=== PATIENT | female | born 1995 | race Caucasian/White ===

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

== ENCOUNTER 2017-03-26 12:08 | Emergency (ER) | payer OTHER ==
[2017-03-26 13:59] VITALS: BP 115/57
--- NOTE | 2017-03-26 14:03 | UC ---
Respiratory Complaint HPI - HPI Summary HPI Summary: 21 y/o female presents to the urgent care c/o productive cough, wheezing mild SOB for the past 3 days. Pt reports she Hx of asthma and recurrent bronchitis. Pt states went hiking last weekend and the cold and exercise trigger her asthma , Then phlegm has become green w/ chills at home. Pt has been using her albuterol inhaler. Pt denies chest pain, abdominal pain, MARIANO, N/V/D. Pt is UTD w / all vaccines for her age. - History of Current Complaint Chief Complaint: UCGeneralIllness Stated Complaint: COUGH Time Seen by Provider: 03/26/17 14:01 Hx Obtained From: Patient Hx Last Menstrual Period: IUD ?: No Onset/Duration: Gradual Onset, Lasting Days - 3 days, Still Present, Worse Since - yesterday Timing: Intermittent Episodes - wheezing Severity Initially: Mild Severity Currently: Moderate Pain Intensity: 2 - Headache Pain Scale Used: 0-10 Numeric Character: Cough: Productive, Sputum Description: - green Aggravating Factors: Recumbent Position Alleviating Factors: Bronchodilator Associated Signs And Symptoms: Positive: Chills, Wheezing, URI, Nasal Congestion. Negative: Fever - Risk Factors Pulmonary Embolism Risk Factors: Negative Cardiac Risk Factors: Negative Pseudomonas Risk Factors: Negative Tuberculosis Risk Factors: Negative - Allergies/Home Medications Allergies/Adverse Reactions: Allergies Allergy/AdvReac Type Severity Reaction Status Date / Time amoxicillin Allergy Hives Verified 03/26/17 13:53 Home Medications: Home Medications Albuterol HFA INHALER* [Ventolin HFA Inhaler*] 2 puff INH Q4H PRN 03/26/17 [ History Confirmed 03/26/17] PMH/Surg Hx/FS Hx/Imm Hx Previously Healthy: Yes Respiratory History: Asthma, Bronchitis - recurrent - Surgical History Surgical History: Yes Surgery Procedure, Year, and Place: RIGHT HIP SX - Family History Known Family History: Negative: Diabetes Family History: Leukemia - Social History Occupation: Student Lives: With Family Alcohol Use: Rare Substance Use Type: None Smoking Status (MU): Never Smoked Tobacco Have You Smoked in the Last Year: No - Immunization History Vaccination Up to Date: Yes Review of Systems Constitutional: Chills Skin: Negative Eyes: Negative ENT: Nasal Discharge Respiratory: Shortness Of Breath, Cough, Other - wheezing Cardiovascular: Negative Gastrointestinal: Negative Genitourinary: Negative Motor: Negative Neurovascular: Negative Musculoskeletal: Negative Neurological: Headache Psychological: Negative Is Patient Immunocompromised?: No All Other Systems Reviewed And Are Negative: Yes Physical Exam Triage Information Reviewed: Yes Vital Signs: Initial Vital Signs Temp 97.8 F 03/26/17 13:54 Pulse 70 03/26/17 13:54 Resp 24 03/26/17 13:54 BP 115/57 03/26/17 13:54 Pulse Ox 100 03/26/17 13:54 - Additional Comments VITAL SIGNS: Reviewed. GENERAL: Patient is a well developed and nourished female adolescent with no apparent respiratory distress. HEAD AND FACE: Normocephalic and atraumatic. EYES: PERRLA, EOMI x 2, No injected conjunctiva. EARS: Hearing grossly intact. Ear canals and tympanic membranes WNL MOUTH: Dry oral mucosa. NECK: Supple, trachea is midline, no adenopathy, no JVD, no carotid bruit. CHEST: Symmetric, No intercostal or abdominal retraction, LUNGS: Diffuse bilateral posterior lungs w/ wheezing and decreased breath sounds.No crackles. CVS: RRR,, S1 and S2 present, no murmurs or gallops appreciated. ABDOMEN: Soft, non-tender. No signs of distention. Positive BS. No rebound, no guarding, and no masses palpated. EXTREMITIES: FROM in all major joints, no edema, no cyanosis or clubbing. NEURO: Alert and oriented x 3. No acute neurological deficits. Speech is normal and follows commands. SKIN: Dry and warm UC Diagnostic Evaluation - Laboratory O2 Sat by Pulse Oximetry: 100 Respiratory Course/Dx - Course Course Of Treatment: 21 y/o female presents to the urgent care c/o productive cough, wheezing mild SOB for the past 3 days. Pt reports she has Hx of asthma and recurrent bronchitis. Pt states went hiking last weekend and the cold and exercise trigger her asthma, Then phlegm has become green w/ chills at home. Pt has been using her albuterol inhaler. Pt denies chest pain, abdominal pain, MARIANO, N/V/D. Pt is UTD w/ all vaccines for her age.Hx obtained Pt w/ Asthma exacerbation: due to Acute Bronchitis. O2Sat: 100%. Prednisone and albuterol Tx given to patient. Patient tolerated well treatment and lungs improved, mild wheezing only in posterior RT lung, O2 sat 100%. Patient left the clinic ambulating and feeling better. Patient prescribed Prednisone PO, Z-gris PO as directed below. The patient was recommended to increase fluid intake. Take medications as recommended and patient advised to continue w/ albuterol treatments TID. Patient recommended to return to the clinic or go to the nearest ER if symptoms do not improve or worsen. Otherwise f/u w/ her PCP for further management on her Asthma. Patient understood and agreew/ plan of care - Differential Dx/Diagnosis Differential Diagnosis/HQI/PQRI: Asthma, Bronchitis, Influenza, Laryngitis, Lower Resp Infection, Sinusitis Provider Diagnoses: 1- Acute asthma exacerbation. 2-Bronchitis Discharge - Discharge Plan Condition: Stable Disposition: HOME Prescriptions: Azithromyxin GRIS (NF) [Z-Gris (Zithromax) 250 mg tabs #6] 2 tab PO .TODAY, THEN 1 DAILY #6 tab predniSONE TAB* [Deltasone TAB*] 20 mg PO DAILY #8 tab Patient Education Materials: Asthma (ED), Acute Bronchitis (ED) Forms: *School Release Referrals: [facility] [Outside] - 3 Days Additional Instructions: 1-Please take full course of antibiotic to avoid resistance. 2- use the albuterol inhaler to alleviate cough. Increase fluid intake, rest and eat well. 3- If symptoms do not improve or worsen or your develop SOB with fever and severe wheezing please go immediately to the ER further evaluation and treatment. 4- F/u with your PCP in 2-3 days for further management on your Asthma
[2017-03-26] MEDS ORDERED: Albuterol 2.5 MG/3 ML NEB.SOL* (0.083%) INH ONE (14:08)
[2017-03-26] MEDS ORDERED: predniSONE TAB* 20 MG PO ONE (14:08)
== END 2017-03-26 14:58 | disposition home or self-care (01) ==
LOC: UCCORT 12:08
DX: J45.901 Unspecified asthma with (acute) exacerbation (principal)
CPT/HCPCS: 99212; G0463; J7512

== ENCOUNTER 2017-05-20 13:38 | Emergency (ER) | payer OTHER ==
--- NOTE | 2017-05-20 14:12 | UC ---
Hand/Wrist HPI - HPI Summary HPI Summary: pt hit in R hand while up to bat in a [email or web address] soft[place] game. pitch was about 60 mph. c/o pain/swelling. 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 - History Of Current Complaint Stated Complaint: RT HAND INJURY Time Seen by Provider: 05/20/17 13:58 Hx Obtained From: Patient Hx Last Menstrual Period: IUD Onset/Duration: Sudden Onset Severity Initially: Moderate Severity Currently: Moderate Character Of Pain: Aching Aggravating Factor(s): Movement Alleviating Factor(s): Rest - Allergies/Home Medications Allergies/Adverse Reactions: Allergies Allergy/AdvReac Type Severity Reaction Status Date / Time amoxicillin Allergy Hives Verified 03/26/17 13:53 PMH/Surg Hx/FS Hx/Imm Hx Previously Healthy: Yes - Surgical History Surgical History: Yes Surgery Procedure, Year, and Place: RIGHT HIP SX - Family History Known Family History: Positive: Other - half brother with leukemia Negative: Diabetes Family History: Leukemia - Social History Occupation: Student Lives: Dormitory/Roommates Alcohol Use: Rare Substance Use Type: None Smoking Status (MU): Never Smoked Tobacco Have You Smoked in the Last Year: No - Immunization History Vaccination Up to Date: Yes Review of Systems Constitutional: Negative Skin: Negative Eyes: Negative ENT: Negative Respiratory: Negative Cardiovascular: Negative Gastrointestinal: Negative Genitourinary: Negative Motor: Negative Neurovascular: Negative Musculoskeletal: Other: - pain/swelling R hand Neurological: Negative Psychological: Negative Is Patient Immunocompromised?: No All Other Systems Reviewed And Are Negative: Yes Physical Exam Triage Information Reviewed: Yes Appearance: Well-Appearing Vital Signs Reviewed: Yes Eyes: Positive: Conjunctiva Clear ENT: Positive: Normal ENT inspection Neck: Positive: Supple, Nontender, No Lymphadenopathy Respiratory: Positive: Lungs clear, Normal breath sounds Cardiovascular: Positive: RRR, No Murmur Abdomen Description: Positive: Nontender, No Organomegaly, Soft Bowel Sounds: Positive: Present Musculoskeletal: Positive: Other: - RUE: Dorsal/radial hand with swelling and tenderness. s/v/m is intact. Neurological: Positive: Alert Psychological: Positive: Age Appropriate Behavior Skin Exam: Normal Diagnostics - Radiology No standard instances Xray Interpretation: Positive (See Comments) - sts, no fx Radiology Interpretation Completed By: Radiologist Hand/Wrist Course/Dx - Course Course Of Treatment: NO FX OR INFECTION - Differential Dx/Diagnosis Provider Diagnoses: Contusion R hand Discharge - Sign-Out/Discharge Documenting (check all that apply): Discharge - Discharge Plan Condition: Stable Disposition: HOME Patient Education Materials: Contusion in Adults (ED) Forms: *School Release Additional Instructions: FOLLOW UP [facility] IN 5 DAYS FOR A RECHECK. - Billing Disposition and Condition Condition: STABLE Disposition: HOME
[2017-05-20 14:13] VITALS: BP 128/79
--- NOTE | 2017-05-20 14:30 | RAD ---
Indication: RIGHT hand pain and swelling following injury. Attention fourth and fifth metacarpals. Struck by pitch yesterday. Comparison: No relevant prior exams available on the [facility] PACS for comparison. Technique: AP and lateral views RIGHT hand. REPORT AND IMPRESSION: Negative for fracture or malalignment. Reserved joint spaces. Soft tissue swelling over the dorsum of the hand at the level of the metacarpals and metacarpal phalangeal joints.
== END 2017-05-20 14:58 | disposition home or self-care (01) ==
LOC: UCCORT 13:38
DX: S60.221A Contusion of right hand, initial encounter (principal); W21.09XA Struck by other hit or thrown ball, initial encounter; Y93.64 Activity, baseball; Y92.328 Other athletic field as the place of occurrence of the external cause; Z88.0 Allergy status to penicillin
CPT/HCPCS: 99211; G0463

== ENCOUNTER 2017-10-06 19:37 | Emergency (ER) | payer OTHER ==
[2017-10-06 21:15] VITALS: BP 130/77
--- NOTE | 2017-10-06 21:55 | UC ---
Throat Pain/Nasal Jean Claude HPI - HPI Summary HPI Summary: 22-year-old female noticed medical history presents from home with gradual onset , gradually worsening sore throat associated with subjective fever and generalized malaise for approximately 4 days, with positive sick contacts with very similar symptoms that they suspect might be mononucleosis. Patient denies any nausea or vomiting , complains of mild left-sided flank and abdominal pain. Denies any dysuria. No hematuria. Denies cough. - History of Current Complaint Chief Complaint: UCRespiratory Stated Complaint: SORE THROAT,SKIN CONCERN,ACHEY Time Seen by Provider: 10/06/17 21:21 Hx Last Menstrual Period: 09/28/17 Pain Intensity: 6 - Allergies/Home Medications Allergies/Adverse Reactions: Allergies Allergy/AdvReac Type Severity Reaction Status Date / Time amoxicillin Allergy red, Verified 10/06/17 21:15 swollen ears PMH/Surg Hx/FS Hx/Imm Hx - Additional Past Medical History Additional PMH: No history of diabetes Previously Healthy: Yes - Surgical History Surgical History: Yes Surgery Procedure, Year, and Place: RIGHT HIP SX - Family History Known Family History: Positive: Other - half brother with leukemia Negative: Diabetes Family History: Leukemia - Social History Alcohol Use: Rare Substance Use Type: None Smoking Status (MU): Never Smoked Tobacco Have You Smoked in the Last Year: No - Immunization History Vaccination Up to Date: Yes Review of Systems ENT: Sore Throat All Other Systems Reviewed And Are Negative: Yes Physical Exam - Summary Physical Exam Summary: Gen: alert, in no acute distress HEENT: EOMI, normoecphalic, atruamatic. Mild pharyngeal irritation and erythema , bilateral tonsillar enlargement without obvious exudate. Moist mucous membranes Neck: supple, no masses CV: Normal s1 s2, no murmurs Resp: normal breath sounds b/l GI: no tenderness, no masses. Questionable subtle splenomegaly on the left upper quadrant Musculoskeletal: normal ROM all 4 extremities Skin: Small erythematous rash located in the left lower quadrant of the abdomen , nontender Lymph: Mild tender left-sided cervical lymphadenopathy Psych: appropriate affect, oriented Triage Information Reviewed: Yes Vital Signs: Initial Vital Signs Temp 37.7 C 10/06/17 21:09 Pulse 72 10/06/17 21:09 Resp 14 10/06/17 21:09 BP 130/77 10/06/17 21:09 Pulse Ox 100 10/06/17 21:09 Throat Pain/Nasal Course/Dx - Course Course Of Treatment: Symptoms and exam consistent with possible mononucleosis, patient says that she will follow-up on test drawn today. Instructed to stay away from sports practice and vigorous physical activity, strep test negative. Agrees to understands discharge instructions. Vital signs stable, in no acute distress. I also instructed the patient to report to the emergency department for any worsening or concerning symptoms. - Differential Dx/Diagnosis Provider Diagnoses: generalized fatigue. sore throat Discharge - Sign-Out/Discharge Documenting (check all that apply): Patient Departure - home All imaging exams completed and their final reports reviewed: No Studies - Discharge Plan Condition: Stable Disposition: HOME Patient Education Materials: Mononucleosis (ED) Forms: *School Release Referrals: [facility] [Provider Group] [facility] [Provider Group] [facility] [Provider Group] Additional Instructions: PLEASE MAKE AN APPOINTMENT FIRST THING IN THE MORNING TO BE SEEN BY A PRIMARY CARE DOCTOR WITHIN 1 WEEK PLEASE AVOID SPORTS UNTIL COMPLETE RESOLUTION OF SYMPTOMS PLEASE REPORT TO ER FOR ANY WORSENING OR CONCERNING SYMPTOMS - Billing Disposition and Condition Condition: STABLE Disposition: Home
== END 2017-10-06 21:59 | disposition home or self-care (01) ==
LOC: UCCORT 19:37
DX: J02.9 Acute pharyngitis, unspecified (principal); R53.83 Other fatigue; R50.9 Fever, unspecified; Z88.0 Allergy status to penicillin
CPT/HCPCS: 36415; 86308; 87651; 99211; G0463

== ENCOUNTER 2017-10-08 07:56 | Emergency (ER) | payer OTHER ==
[2017-10-08 08:13] VITALS: BP 125/69
--- NOTE | 2017-10-08 08:29 | UC ---
Throat Pain/Nasal Jean Claude HPI - HPI Summary HPI Summary: The patient is a 22-year-old female with 5-6 day history of sore throat. She was seen here about 48 hours ago and had a negative strep test as well as a negative Monospot. Since then her symptoms have markedly worsened. He currently is unable to tolerate oral liquids. She is having a hard time handling her oral secretions. She has had fever chills myalgias headache and fatigue. She feels weak and dizzy as well as having some lightheadedness. her boyfriend is ill with similar symptoms - History of Current Complaint Chief Complaint: UCGeneralIllness Stated Complaint: RECHECK SORE THROAT Time Seen by Provider: 10/08/17 08:29 Hx Obtained From: Patient Hx Last Menstrual Period: 09/28/17 Onset/Duration: Gradual Onset, Lasting Days Severity: Severe Pain Intensity: 10 Pain Scale Used: 0-10 Numeric Cough: None Associated Signs & Symptoms: Positive: Dysphagia, Fever - Epiglottits Risk Factors Epiglottis Risk Factors: Negative - Allergies/Home Medications Allergies/Adverse Reactions: Allergies Allergy/AdvReac Type Severity Reaction Status Date / Time amoxicillin Allergy red, Verified 10/08/17 08:08 swollen ears Home Medications: Home Medications Ibuprofen TAB* [Advil TAB*] 800 mg PO Q6H PRN 10/08/17 [History Confirmed ] PMH/Surg Hx/FS Hx/Imm Hx Previously Healthy: Yes - Surgical History Surgical History: Yes Surgery Procedure, Year, and Place: RIGHT HIP SX - Family History Known Family History: Positive: Other - half brother with leukemia Negative: Diabetes Family History: Leukemia - Social History Alcohol Use: Rare Substance Use Type: None Smoking Status (MU): Never Smoked Tobacco Have You Smoked in the Last Year: No - Immunization History Vaccination Up to Date: Yes Review of Systems Constitutional: Fever, Chills, Fatigue Skin: Negative Eyes: Negative ENT: Sore Throat Respiratory: Negative Cardiovascular: Negative Gastrointestinal: Negative Genitourinary: Negative Motor: Negative Neurovascular: Negative Musculoskeletal: Negative Neurological: Negative Psychological: Negative Is Patient Immunocompromised?: No All Other Systems Reviewed And Are Negative: Yes Physical Exam Triage Information Reviewed: Yes Appearance: No Pain Distress, Well-Nourished, Ill-Appearing Vital Signs: Initial Vital Signs Temp 98.2 F 10/08/17 08:05 Pulse 84 08/30/18 08:05 Resp 15 10/08/17 08:05 BP 125/69 10/08/17 08:05 Pulse Ox 99 10/08/17 08:05 Eyes: Positive: Conjunctiva Clear ENT: Positive: Hearing grossly normal, TMs normal, Tonsillar swelling, Tonsillar exudate, Uvula midline. Negative: Nasal congestion, Nasal drainage, Trismus, Muffled voice, Hoarse voice Neck: Positive: Supple, Nontender, Enlarged Nodes @ - ant cervical ONLY Respiratory: Positive: Lungs clear, Normal breath sounds, No respiratory distress, No accessory muscle use Cardiovascular: Positive: RRR, No Murmur, Pulses Normal Abdomen Description: Positive: Nontender, No Organomegaly. Negative: CVA Tenderness (R), CVA Tenderness (L), Hepatomegaly, Splenomegaly Musculoskeletal: Positive: ROM Intact, No Edema Neurological: Positive: Alert Psychological Exam: Normal Skin Exam: Normal Diagnostics - Laboratory Diagnostic Studies Completed/Ordered: strep (-). culture sent Re-Evaluation - Re-Evaluation First Eval Re-Evaluation Time: 09:59 Change: Unchanged Throat Pain/Nasal Course/Dx - Differential Dx/Diagnosis Provider Diagnoses: acute exudative tonsillitis Discharge - Sign-Out/Discharge Documenting (check all that apply): Patient Departure All imaging exams completed and their final reports reviewed: No Studies - Discharge Plan Condition: Stable Disposition: HOME Prescriptions: Cephalexin CAP* [Keflex CAP*] 500 mg PO BID #20 cap Patient Education Materials: Tonsillitis (ED) Referrals: No Primary Care Phys,NOPCP [Primary Care Provider] - 3 Days (IF NOT IMPROVED) Additional Instructions: A throat culture is pending The results will be back in 2-3 days If there is no identified bacterial pathogen stop the antibiotic RECHECK FOR NEW OR WORSENING SYMPTOMS IF NOT BETTER IN 2-3 GET RECHECKED....WE MAY NEED TO REPEAT A MONO TEST you can take your next dose of motrin around 4PM today rest/fluids we gave you a 12 mg dose of decadron here I anticipate you noticing some relief of you pain in 8-12 hours - Billing Disposition and Condition Condition: STABLE Disposition: Home
[2017-10-08] MEDS: NS 0.9% 1000 ML* 1,000 ML BOLUS ONE (08:59)
[2017-10-08] MEDS: Dexamethasone IV* 4 MG/ML 1 ML (4 MG) IV SLOW PU ONE (09:00)
[2017-10-08] MEDS: Ketorolac INJ* 30 MG/ML 1 ML VIAL IV ONE (09:57)
--- NOTE | 2017-10-11 07:31 | UC ---
- Progress Note Progress Note: PLS CALL PT. THROAT CULTURE GREW H. INFLUENZA. PLS ENSURE SHE IS FEELING BETTER AND IF SO ADVISE TO CONTINUE KEFLEX TO COMPLETE COURSE - TYESHA WILLS MD Re-Evaluation - Re-Evaluation First Eval Re-Evaluation Time: 09:59 Change: Unchanged Discharge - Sign-Out/Discharge Documenting (check all that apply): Post-Discharge Follow Up All imaging exams completed and their final reports reviewed: No Studies - Discharge Plan Condition: Stable Disposition: HOME Prescriptions: Cephalexin CAP* [Keflex CAP*] 500 mg PO BID #20 cap Patient Education Materials: Tonsillitis (ED) Forms: *School Release Referrals: No Primary Care Phys,NOPCP [Primary Care Provider] - 3 Days (IF NOT IMPROVED) Additional Instructions: A throat culture is pending The results will be back in 2-3 days If there is no identified bacterial pathogen stop the antibiotic RECHECK FOR NEW OR WORSENING SYMPTOMS IF NOT BETTER IN 2-3 GET RECHECKED....WE MAY NEED TO REPEAT A MONO TEST you can take your next dose of motrin around 4PM today rest/fluids we gave you a 12 mg dose of decadron here I anticipate you noticing some relief of you pain in 8-12 hours - Billing Disposition and Condition Condition: STABLE Disposition: Home
== END 2017-10-08 10:26 | disposition home or self-care (01) ==
LOC: UCCORT 07:56
DX: J03.90 Acute tonsillitis, unspecified (principal); Z88.0 Allergy status to penicillin
CPT/HCPCS: 87070; 87077; 87185; 87651; 96361; 96374; 96375; 99212; G0463; J1100; J1885

== ENCOUNTER 2017-10-20 08:28 | Emergency (ER) | payer OTHER ==
[2017-10-20 08:43] VITALS: BP 116/68
--- NOTE | 2017-10-20 09:10 | UC ---
Throat Pain/Nasal Jean Claude HPI - HPI Summary HPI Summary: sore throat x 1 days, pain is sever, swollen throat and fever no cough , runny nose just finished keflex 3 days ago for pharyngitis had negative rapid strep and [place] 2 weeks ago - History of Current Complaint Chief Complaint: UCGeneralIllness Stated Complaint: ST Time Seen by Provider: 10/20/17 08:53 Hx Obtained From: Patient Hx Last Menstrual Period: 09/28/17 Onset/Duration: Gradual Onset, Lasting Days - 1, Still Present Severity: Severe Pain Intensity: 9 Cough: None Associated Signs & Symptoms: Positive: Fever. Negative: Sinus Discomfort, Nasal Discharge, Rash - Allergies/Home Medications Allergies/Adverse Reactions: Allergies Allergy/AdvReac Type Severity Reaction Status Date / Time amoxicillin Allergy red, Verified 10/20/17 08:39 swollen ears Home Medications: Home Medications Acetaminophen [Acetaminophen Extra Strength] 1,000 mg PO Q6H PRN 10/20/17 [ History Confirmed 10/20/17] PMH/Surg Hx/FS Hx/Imm Hx Previously Healthy: Yes - Surgical History Surgical History: Yes Surgery Procedure, Year, and Place: Right Hip Bursitis - Family History Known Family History: Positive: Other - half brother with leukemia Negative: Diabetes Family History: Leukemia - Social History Alcohol Use: Rare Substance Use Type: None Smoking Status (MU): Never Smoked Tobacco Have You Smoked in the Last Year: No - Immunization History Vaccination Up to Date: Yes Review of Systems Constitutional: Fever, Chills, Fatigue Skin: Negative Eyes: Negative ENT: Sore Throat Respiratory: Negative Cardiovascular: Negative Gastrointestinal: Negative Is Patient Immunocompromised?: No All Other Systems Reviewed And Are Negative: Yes Physical Exam Triage Information Reviewed: Yes Appearance: Well-Appearing, No Pain Distress, Well-Nourished Vital Signs: Initial Vital Signs Temp 98.2 F 10/20/17 08:36 Pulse 88 10/20/17 08:36 Resp 16 10/20/17 08:36 BP 116/68 10/20/17 08:36 Pulse Ox 100 10/20/17 08:36 Vital Signs Reviewed: Yes Eyes: Positive: Conjunctiva Clear ENT: Positive: Normal ENT inspection, Hearing grossly normal, Pharyngeal erythema, TMs normal, Tonsillar swelling, Tonsillar exudate. Negative: Nasal congestion, Nasal drainage, TM bulging, TM dull, TM red, Trismus Neck: Positive: Supple, Tenderness @, Enlarged Nodes @ Respiratory: Positive: Chest non-tender, Lungs clear, Normal breath sounds Cardiovascular: Positive: RRR, No Murmur, Pulses Normal Abdomen Description: Positive: Nontender, No Organomegaly, Soft Bowel Sounds: Positive: Present Skin Exam: Normal Throat Pain/Nasal Course/Dx - Differential Dx/Diagnosis Provider Diagnoses: pharyngitis Discharge - Sign-Out/Discharge Documenting (check all that apply): Patient Departure All imaging exams completed and their final reports reviewed: No Studies - Discharge Plan Condition: Stable Disposition: HOME Prescriptions: Azithromycin TAB* [Zithromax TAB (Z-GRIS) 250 mg #6 tabs] 2 tab PO .TODAY, THEN 1 DAILY #1 gris predniSONE [Prednisone 20 MG TAB] 20 mg PO BID #10 tablet Patient Education Materials: Pharyngitis (ED) Referrals: No Primary Care Phys,NOPCP [Primary Care Provider] - Additional Instructions: cont. with rest, increase fluid, Take Tylenol as needed for pain and fever Zpak for 5 days , prednisone 20 mg 2 x per day x 5 days will check for step goup A follow up with in 5 days if not improving - Billing Disposition and Condition Condition: STABLE Disposition: Home
== END 2017-10-20 09:25 | disposition home or self-care (01) ==
LOC: UCCORT 08:28
DX: J02.9 Acute pharyngitis, unspecified (principal); Z88.0 Allergy status to penicillin
CPT/HCPCS: 87070; 87077; 87651; 99212; G0463

== ENCOUNTER 2017-11-02 16:34 | Emergency (ER) | payer OTHER ==
[2017-11-02 20:11] VITALS: BP 130/75
[2017-11-02] MEDS ORDERED: Sulfamethox/Trimethoprim DS 800/160* TAB PO ONE (20:39)
--- NOTE | 2017-11-02 20:43 | UC ---
Skin Complaint HPI - HPI Summary HPI Summary: Patient states that while playing softball on the th of this month she slid and got a "ander" on her left hip. She started to get some little bumps around the area which she thought was irritation from the adhesive tape. Now SHE has multiple bumps round that hip plus a few to that lower leg and a few on the other leg as well. She notes that the spots are sore. On additional history, she admits to having had MRSA as well as impetigo. Patient has recently completed a course of Keflex as well as Zithromax for non-resolving throat infection that is now gone and was negative for mono. - History of Current Complaint Chief Complaint: UCSkin Time Seen by Provider: 11/02/17 20:26 Stated Complaint: SKIN COMPLAINT Hx Obtained From: Patient Hx Last Menstrual Period: 11/02/17 Onset/Duration: Gradual Onset Timing: Constant Pain Intensity: 0 Aggravating Factor(s): Nothing Alleviating Factor(s): Nothing Associated Signs & Symptoms: Positive: Rash. Negative: Fever - Allergy/Home Medications Allergies/Adverse Reactions: Allergies Allergy/AdvReac Type Severity Reaction Status Date / Time amoxicillin Allergy red, Verified 11/02/17 20:11 swollen ears Review of Systems Constitutional: Negative Skin: Rash Eyes: Negative ENT: Negative Respiratory: Negative Cardiovascular: Negative Gastrointestinal: Negative Genitourinary: Negative Motor: Negative Neurovascular: Negative Musculoskeletal: Negative Neurological: Negative Psychological: Negative Is Patient Immunocompromised?: No All Other Systems Reviewed And Are Negative: Yes PMH/Surg Hx/FS Hx/Imm Hx - Additional Past Medical History Additional PMH: MRSA, impetigo - Surgical History Surgical History: Yes Surgery Procedure, Year, and Place: Right Hip Bursitis - Family History Known Family History: Positive: Other - half brother with leukemia Negative: Diabetes Family History: Leukemia - Social History Occupation: Student Lives: Dormitory/Roommates Alcohol Use: Rare Substance Use Type: None Smoking Status (MU): Never Smoked Tobacco Have You Smoked in the Last Year: No - Immunization History Vaccination Up to Date: Yes Physical Exam Triage Information Reviewed: Yes Appearance: Well-Appearing Vital Signs: Initial Vital Signs Temp 98.7 F 11/02/17 20:03 Pulse 68 11/02/17 20:03 Resp 15 11/02/17 20:03 BP 130/75 11/02/17 20:03 Pulse Ox 100 11/02/17 20:03 Vital Signs Reviewed: Yes Eyes: Positive: Conjunctiva Clear ENT: Positive: Pharynx normal, TMs normal. Negative: Nasal congestion, Nasal drainage Neck: Positive: Supple, Nontender, No Lymphadenopathy Respiratory: Positive: Lungs clear, Normal breath sounds Cardiovascular: Positive: RRR, No Murmur Abdomen Description: Positive: Nontender, No Organomegaly, Soft Bowel Sounds: Positive: Present Musculoskeletal: Positive: ROM Intact Neurological: Positive: Alert Psychological: Positive: Age Appropriate Behavior Skin Exam: Normal, Other - Left lower extremity exam: There is a well-healing abrasion over the left hip, in the immediate adjacent area there are multiple small pimples. There are additional similar spots to the same lower leg and a few scattered spots to the right lower extremity as well. There is no inguinal adenopathy. There is no scale or blistering. There are no petechial lesions. Course/Dx - Course Course Of Treatment: The spots on the patient's legs are consistent with a skin infection. Given her history of MRSA and the multiple pimple-type areas that are spreading I think that this is a MRSA outbreak. i'm aware the patient recently completed 2 courses of antibiotics one being Zithromax and the other Keflex neither of which would cover MRSA. This current infection is too broad for a topical antibiotic treatment thus I'm going to treat her with Bactrim. I' ve advised patient of the risk for C. difficile colitis given the recent use of antibiotics; however, I think the benefit of oral antibiotic for MRSA outweighs the risk of C. difficile. Patient is willing to take the risk of C. difficile colitis as well and agrees to an oral antibiotic. I have also strongly encouraged her to start probiotic such as culturelle for at least the next 2 weeks. Patient agrees to close follow-up with the [facility] for recheck in 3 days or sooner if worse. I'm going to treat her with a one-week course of the Bactrim and have thighs a followed up provider can extend the course if needed. - Differential Diagnoses - Skin Complaint Differential Diagnoses: MRSA - Diagnoses Provider Diagnoses: Skin infection both lower extremities. txing presumptively for MRSA. Discharge - Sign-Out/Discharge Documenting (check all that apply): Patient Departure All imaging exams completed and their final reports reviewed: No Studies - Discharge Plan Condition: Stable Disposition: HOME Prescriptions: Sulfamethox/Trimethoprim DS* [Bactrim DS 800/160 TAB*] 1 tab PO BID 7 Days #13 tab Patient Education Materials: MRSA (Methicillin-Resistant Staphylococcus Aureus ) (ED) Referrals: [facility] [Outside] - 3 Days Additional Instructions: START A PROBIOTIC DAILY SUCH CULTURELLE FOR 2 WEEKS. - Billing Disposition and Condition Condition: STABLE Disposition: Home
== END 2017-11-02 20:48 | disposition home or self-care (01) ==
LOC: UCCORT 16:34
DX: L08.9 Local infection of the skin and subcutaneous tissue, unspecified (principal); A49.02 Methicillin resistant Staphylococcus aureus infection, unspecified site; Z86.14 Personal history of Methicillin resistant Staphylococcus aureus infection; Z88.0 Allergy status to penicillin
CPT/HCPCS: 99212; A9270-GY; G0463

== ENCOUNTER 2018-03-29 17:16 | Emergency (ER) | payer OTHER ==
[2018-03-29 19:06] VITALS: BP 135/70
--- NOTE | 2018-03-29 19:23 | UC ---
UC General HPI - HPI Summary HPI Summary: sinus congestion plus a worsening cough with chest congestion and wheezing x7 days. hx of asthma. no headache or bodyaches. - History of Current Complaint Chief Complaint: UCGeneralIllness Stated Complaint: CONGESTION,COUGH,WHEEZY Time Seen by Provider: 03/29/18 19:17 Hx Obtained From: Patient Hx Last Menstrual Period: 03/05/18 Onset/Duration: Gradual Onset Timing: Constant Pain Intensity: 0 Associated Signs & Symptoms: Positive: SOB, Wheezing. Negative: Chest Pain - Allergy/Home Medications Allergies/Adverse Reactions: Allergies Allergy/AdvReac Type Severity Reaction Status Date / Time amoxicillin Allergy red, Verified 11/02/17 20:11 swollen ears Home Medications: Home Medications Phenylephrine/Dm/Acetaminop/GG [Tylenol Cold-Flu Severe Caplet] 1 each PO DAILY 03/29/18 [History Confirmed 03/29/18] PMH/Surg Hx/FS Hx/Imm Hx Respiratory History: Asthma - Surgical History Surgical History: Yes Surgery Procedure, Year, and Place: Right Hip Bursitis - Family History Known Family History: Positive: Other - half brother with leukemia Negative: Diabetes Family History: Leukemia - Social History Occupation: Student Alcohol Use: None Substance Use Type: None Smoking Status (MU): Never Smoked Tobacco Have You Smoked in the Last Year: No - Immunization History Vaccination Up to Date: Yes Review of Systems All Other Systems Reviewed And Are Negative: Yes Constitutional: Positive: Negative Skin: Positive: Negative Eyes: Positive: Negative ENT: Positive: Sinus Congestion Respiratory: Positive: Shortness Of Breath, Cough Cardiovascular: Positive: Negative Gastrointestinal: Positive: Negative Genitourinary: Positive: Negative Motor: Positive: Negative Neurovascular: Positive: Negative Musculoskeletal: Positive: Negative Neurological: Positive: Negative Psychological: Positive: Negative Physical Exam Triage Information Reviewed: Yes Appearance: Well-Appearing Vital Signs: Initial Vital Signs Temp 97.8 F 03/29/18 19:02 Pulse 86 03/29/18 19:02 Resp 17 03/29/18 19:02 BP 135/70 03/29/18 19:02 Pulse Ox 99 03/29/18 19:02 Vital Signs Reviewed: Yes Eyes: Positive: Conjunctiva Clear ENT: Positive: Pharynx normal, TMs normal. Negative: Nasal drainage, Sinus tenderness Neck: Positive: Supple, Nontender, No Lymphadenopathy Respiratory: Positive: No respiratory distress, Decreased breath sounds, Other: - Congested bronchospatic cough. Cardiovascular: Positive: RRR, No Murmur Abdomen Description: Positive: Nontender, No Organomegaly, Soft Bowel Sounds: Positive: Present Musculoskeletal: Positive: ROM Intact Neurological: Positive: Alert Psychological: Positive: Age Appropriate Behavior Skin Exam: Normal Course/Dx - Diagnoses Provider Diagnosis: Asthma Discharge - Sign-Out/Discharge Documenting (check all that apply): Patient Departure All imaging exams completed and their final reports reviewed: No Studies - Discharge Plan Condition: Stable Disposition: HOME Prescriptions: Albuterol HFA INHALER* [Ventolin HFA Inhaler*] 2 puff INH Q6H #1 mdi Azithromycin TAB* [Zithromax TAB (Z-GRIS) 250 mg #6 tabs] 2 tab PO .TODAY, THEN 1 DAILY #1 gris predniSONE [Prednisone 20 MG TAB] 40 mg PO DAILY 5 Days #10 tablet Patient Education Materials: Asthma (ED) Referrals: ANTONY NULL [, APPLICATION, OTHER] - 4 Days - Billing Disposition and Condition Condition: STABLE Disposition: Home
== END 2018-03-29 19:32 | disposition home or self-care (01) ==
LOC: UCCORT 17:16
DX: J45.909 Unspecified asthma, uncomplicated (principal); Z88.0 Allergy status to penicillin
CPT/HCPCS: 99212; G0463